=== PATIENT | female | born 1950 | race Caucasian/White ===

== ENCOUNTER → 2021-03-12 | Outpatient (CLI) | payer MEDICARE, OTHER ==
[~2021-03-12] MED LIST: ASCO500C17 PO; CALC-823 PO; CHOL500049 PO; LORA10TA76 PO
--- NOTE | 2021-03-12 14:08 | Diagnostic Imaging Report ---
INDICATION: Nephrolithiasis. FINDINGS: The bowel gas pattern is nonspecific. There are no abnormal abdominal calcifications. The osseous structures are unremarkable. IMPRESSION: Nonspecific bowel gas pattern. Dictated by: Dictated on workstation # [id number]
== END ==
LOC: RAD 13:13
PROVIDERS: ATTEND Urology
DX: Z87.442 Personal history of urinary calculi (principal)
CPT/HCPCS: 74018

== ENCOUNTER 2021-03-13 06:08 | Day surgery (SDC) | payer MEDICARE, OTHER ==
[2021-03-13] VITALS (8 sets, daily range): BP systolic 129–163; BP diastolic 68–83
--- NOTE | 2021-03-13 07:02 | Progress Note-Pre Operative ---
Pre-Operative Progress Note H&P Reviewed The H&P was reviewed, patient examined and no changes noted. Date Seen by Provider: Mar 13, 2021 Time Seen by Provider: 07:02 Date H&P Reviewed: Mar 13, 2021 Time H&P Reviewed: 07:02 Pre-Operative Diagnosis: RT PROXIMAL URETERAL STONE DANYEL CARRILLO MD Mar 13, 2021 07:02
--- NOTE | 2021-03-13 07:08 | Diagnostic Imaging Report ---
REASON FOR EXAM: ESWL COMPARISON: 03/12/2021. TECHNIQUE: frontal supine view of the abdomen FINDINGS: Calculus is seen along the expected course of the right ureter measuring 0.8 cm. This appears to have progressed slightly since the prior exam. IMPRESSION: Slight progression of the calculus along the expected course of the right ureter measuring 0.8 cm. Dictated by: Dictated on workstation # [id number]
[2021-03-13] MEDS ORDERED: WATER (STERILE) FOR INJECTION 10 ML ONE (07:11)
[2021-03-13] MEDS ORDERED: cefTRIAXone 1,000 MG VIAL ONE (07:11)
[2021-03-13] MEDS ORDERED: CALC-823 PO (07:14)
[2021-03-13] MEDS ORDERED: CHOL500049 PO (07:14)
[2021-03-13] MEDS ORDERED: ASCO500C17 PO (07:14)
[2021-03-13] MEDS ORDERED: LORA10TA76 PO (07:14)
--- NOTE | 2021-03-13 07:27 | Progress Note-Post Operative ---
Post-Operative Progess Note Surgeon (s)/Certified Peer Specialist (s) Surgeon DANYEL CARRILLO MD Certified Peer Specialist: NONE Pre-Operative Diagnosis RT PROXIMAL URETERAL STONE Post-Operative Diagnosis SAME Procedure & Operative Findings Date of Procedure 03/13/21 Procedure Performed/Findings CYSTOSCOPY, RT URETEROSCOPY, STONE MANIPULATION, AND INSERTION OF STENT Anesthesia Type GENERAL Estimated Blood Loss Estimated blood loss (mL): NONE Specimens/Packing Specimens Removed NONE Packing: NONE DANYEL CARRILLO MD Mar 13, 2021 07:27
--- NOTE | 2021-03-13 07:28 | Discharge Inst-Urology ---
Discharge Inst-Urology Reconcile Patient Problems Problems Reviewed?: Yes Final Diagnosis RT PROXIMAL URETERAL STONE Patient Instructions/Follow Up Plan/Assessment/Instructions Please make appointment to been seen in office Monday 03/26, KUB prior to it KUB on way home Increase oral fluids for 48 hours and then as needed. Diet and Activity as tolerated. If questions or concerns contact your physician Or seek help at emergency department. DANYEL CARRILLO MD Mar 13, 2021 07:28
[2021-03-13] MEDS ORDERED: SCOPOLAMINE 1.5 MG (TRANSDERM-SCOP) PATCH TOP ONE (07:30)
[2021-03-13] MEDS ORDERED: cefTRIAXone 1,000 MG in WATER (STERILE) FOR INJECTION 10 ML IV ONE (07:30)
[2021-03-13] MEDS ORDERED: ONDANSETRON 4 MG/2 ML (SDV) Z0FRAN IV ONE (07:30)
[2021-03-13] MEDS ORDERED: FAMOTIDINE 20MG/2ML IV (PEPCID) IV ONE (07:30)
[2021-03-13] MEDS ORDERED: LIDOCAINE PF 2% 5 ML (XYLOCAINE) VIAL ONE (07:57)
[2021-03-13] MEDS ORDERED: proPOfol 200 MG/20 ML (DIPRIVAN) VIAL IV ONE (07:57)
[2021-03-13] MEDS ORDERED: ONDANSETRON 4 MG/2 ML (SDV) Z0FRAN ONE (07:57)
[2021-03-13] MEDS ORDERED: SEVOFLURANE (ULTANE) 15 ML INHAL SOLN ONE ×2 (07:57→08:46)
[2021-03-13] MEDS ORDERED: fentaNYL INJ 100 MCG/2 ML AMP ONE (07:58)
[2021-03-13] MEDS ORDERED: MIDAZOLAM 2 MG/2 ML (VERSED) VIAL ONE (07:58)
[2021-03-13] MEDS ORDERED: LACTATED RINGERS 1,000 ML IV PRN (08:00)
[2021-03-13] MEDS ORDERED: KETOROLAC 30 MG/ML VIAL ONE (08:19)
[2021-03-13] MEDS ORDERED: FUROSEMIDE 40 MG/4 ML INJ (LASIX) ONE (08:19)
[2021-03-13] MEDS ORDERED: ROCURONIUM 10 MG/ML 5 ML SYRINGE IV ONE (08:21)
[2021-03-13] MEDS ORDERED: NEOSTIGMINE 3 MG/3 ML VIAL ONE (08:50)
[2021-03-13] MEDS ORDERED: GLYCOPYRROLATE 0.2 MG/ML (ROBINUL) 2 ML VIAL ONE (08:50)
[2021-03-13] MEDS ORDERED: ONDANSETRON 4 MG/2 ML (SDV) Z0FRAN IVP PRN (09:00)
[2021-03-13] MEDS ORDERED: MEPERIDINE (DEMEROL) INJ 50 MG/ML IVP ONE (09:00)
[2021-03-13] MEDS ORDERED: morphine INJ 10 MG/ML 1ML (SYR OR VIAL) IVP ONE (09:00)
--- NOTE | 2021-03-13 10:09 | Anesthesia-General Post-Op ---
General Patient Condition Mental Status/LOC: Same as Preop Cardiovascular: Satisfactory Nausea/Vomiting: Absent Respiratory: Satisfactory Pain: Controlled Complications: Absent Post Op Complications Complications None Follow Up Care/Instructions Patient Instructions None needed. Anesthesia/Patient Condition Patient Condition Patient is doing well, no complaints, stable vital signs, no apparent adverse anesthesia problems. No complications reported per nursing. DAVID HORN CRNA Mar 13, 2021 10:09
--- NOTE | 2021-03-13 10:34 | Diagnostic Imaging Report ---
INDICATION: Nephrolithiasis. Comparison is made with prior examination from 03/13/2021. FINDINGS: There has been interval placement of a right nephroureteral stent which appears to be in satisfactory position. There is a crescent-shaped calcification overlying the right renal hilus. The previously described calculus along the course of the right ureter is not well-visualized IMPRESSION: Interval placement of a right nephroureteral stent which appears to be in satisfactory position. Dictated by: Dictated on workstation # [id number]
--- NOTE | 2021-03-13 14:09 | OPERATIVE REPORT ---
DATE OF SERVICE: 03/13/2021 PREOPERATIVE DIAGNOSIS: Right proximal ureteral stone. POSTOPERATIVE DIAGNOSIS: Right proximal ureteral stone. OPERATION PERFORMED: Cystoscopy, right ureteroscopy, right proximal ureteral stone manipulation and insertion of stent. SURGEON: Scout Carrillo MD ANESTHESIA: General. COMPLICATIONS: None. DESCRIPTION OF PROCEDURE: Under satisfactory general anesthesia, the patient in lithotomy position, genitalia were prepped and draped in the usual sterile fashion. Cystoscope was performed and was negative except for sluggish right ureteral efflux. Using the foroblique lens, I dilated the right ureteral orifice intramural portion to accommodate a 6.9 Iranian semi-rigid ureteroscope, went up to the proximal ureter about 1 cm distal to the stone guided fluoroscopically. I was unable to manipulate may be a spasm or peristalsis of the ureter to come to the stone. I discontinued further attempt, removed the ureteroscope, reinserted the cystoscope and passed a 6-Iranian 26 cm double-J stent, bypassed the stone, went all the way up to the kidney, removed the guidewire, the stent was seen draining nicely proximally fluoroscopically and distally endoscopically. Bladder was evacuated and the cystoscope was removed. The patient tolerated the procedure and anesthesia well and was sent to recovery room in stable condition. PLAN: Let her see Dr. 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 I will see her back on Monday 03/26. We will get a green light from him. We will bring her back and do an ESWL. Otherwise, I told her that she could have a flexible ureteroscopy at [facility] if she wishes to do so. This was also explained to her boyfriend. Job ID: [id number] DocumentID: [id number] Dictated Date: 03/13/2021 08:58:52 Histopathologist Date: 03/13/2021 14:07:32 Dictated By: SCOUT CARRILLO MD
== END 2021-03-13 10:30 ==
LOC: SDC 06:08
PROVIDERS: ATTEND Urology
DX: N20.1 Calculus of ureter (principal); K21.9 Gastro-esophageal reflux disease without esophagitis; J30.9 Allergic rhinitis, unspecified; Z80.0 Family history of malignant neoplasm of digestive organs
CPT/HCPCS: 52332; 52352; 74018; 76000; 87081; C2625

== ENCOUNTER → 2021-03-26 | Outpatient (CLI) | payer MEDICARE, OTHER ==
[~2021-03-26] MED LIST changes: +KETO10TA PO; +NITR-65 PO; +PHEN-640 PO; +TMSL.4C PO
--- NOTE | 2021-03-26 15:51 | Diagnostic Imaging Report ---
INDICATION: Right ureterolithiasis KUB 220. There is right double-J ureteral stent. Curvilinear calcification projecting within the pelvis. There is a questionable calculus in the ureter at the level of the L4 transverse process. IMPRESSION: Right nephrolithiasis. Questionable right ureterolithiasis 4 mm in diameter at the level of the L4 transverse process Dictated by: Dictated on workstation # [id number]
== END ==
LOC: RAD 14:00
PROVIDERS: ATTEND Urology
DX: N20.2 Calculus of kidney with calculus of ureter (principal)
CPT/HCPCS: 74018

== ENCOUNTER 2021-03-27 06:44 | Day surgery (SDC) | payer MEDICARE, OTHER ==
[~2021-03-27] VITALS: Ht 160 cm; Wt 55.5 kg
[2021-03-27] VITALS (9 sets, daily range): BP systolic 128–162; BP diastolic 81–95
[~2021-03-27 06:44] MED LIST changes: -KETO10TA PO; -NITR-65 PO; -PHEN-640 PO; -TMSL.4C PO
[2021-03-27] MEDS ORDERED: cefTRIAXone 1,000 MG in WATER (STERILE) FOR INJECTION 10 ML IV ONE (08:15)
--- NOTE | 2021-03-27 08:24 | Progress Note-Pre Operative ---
Pre-Operative Progress Note H&P Reviewed The H&P was reviewed, patient examined and no changes noted. Date Seen by Provider: Mar 27, 2021 Time Seen by Provider: 08:24 Date H&P Reviewed: Mar 27, 2021 Time H&P Reviewed: 08:24 Pre-Operative Diagnosis: RT PROXIMAL URETERAL STONE DANYEL CARRILLO MD Mar 27, 2021 08:24
--- NOTE | 2021-03-27 08:27 | Diagnostic Imaging Report ---
INDICATION: Status post lithotripsy, renal/ureteral calculi COMPARISON: 03/26/2021 TECHNIQUE: Single radiograph of the abdomen dated 03/27/2021 FINDINGS: Right ureteral stent is again identified, appearing stable from the prior examination. 6 mm calcification abutting the proximal right ureteral stent lying between the right L4 and L5 transverse processes is again identified, appearing similar to the prior examination given differences in technique. Additional curvilinear calcification overlying the superior pole of the right renal shadow is unchanged from the prior examinations. Nonobstructive bowel gas pattern. No free air. Osseous structures appear stable. IMPRESSION: Persistent 6 mm calcification abutting the proximal right ureteral stent which may relate to a right-sided ureterolith. Additional stable findings as above. Dictated by: Dictated on workstation # [id number]
[2021-03-27] MEDS: LACTATED RINGERS 1,000 ML IV PRN ×2 (08:53→09:45)
[2021-03-27] MEDS ORDERED: FAMOTIDINE 20MG/2ML IV (PEPCID) ONE (09:06)
[2021-03-27] MEDS ORDERED: ONDANSETRON 4 MG/2 ML (SDV) Z0FRAN ONE ×2 (09:07→09:13)
[2021-03-27] MEDS ORDERED: SEVOFLURANE (ULTANE) 15 ML INHAL SOLN ONE (09:13)
[2021-03-27] MEDS ORDERED: fentaNYL INJ 100 MCG/2 ML AMP ONE (09:13)
[2021-03-27] MEDS ORDERED: MIDAZOLAM 2 MG/2 ML (VERSED) VIAL ONE (09:13)
[2021-03-27] MEDS ORDERED: LIDOCAINE PF 2% 5 ML (XYLOCAINE) VIAL ONE (09:13)
[2021-03-27] MEDS ORDERED: proPOfol 200 MG/20 ML (DIPRIVAN) VIAL IV ONE (09:13)
[2021-03-27] MEDS ORDERED: ONDANSETRON 4 MG/2 ML (SDV) Z0FRAN IV ONE (09:15)
[2021-03-27] MEDS ORDERED: FAMOTIDINE 20MG/2ML IV (PEPCID) IV ONE (09:15)
--- NOTE | 2021-03-27 09:35 | Progress Note-Post Operative ---
Post-Operative Progess Note Surgeon (s)/Detention Deputy (s) Surgeon DANYEL CARRILLO MD Detention Deputy: NONE Pre-Operative Diagnosis RT PROXIMAL URETERAL STONE Post-Operative Diagnosis SAME Procedure & Operative Findings Date of Procedure 03/27/21 Procedure Performed/Findings RT ESWL WITH CYSTO AND REMOVAL OF STENT Anesthesia Type GENERAL Estimated Blood Loss Estimated blood loss (mL): NONE Specimens/Packing Specimens Removed NONE Packing: NONE DANYEL CARRILLO MD Mar 27, 2021 09:35
--- NOTE | 2021-03-27 09:39 | Discharge Inst-Urology ---
Discharge Inst-Urology Reconcile Patient Problems Problems Reviewed?: Yes Final Diagnosis RT PROXIMAL URETERAL STONE Patient Instructions/Follow Up Plan/Assessment/Instructions Please make appointment to been seen in office NEXT week. KUB prior to it KUB on way home Post ESWL instructions Increase oral fluids for 48 hours and then as needed. Diet and Activity as tolerated. If questions or concerns contact your physician Or seek help at emergency department. DANYEL CARRILLO MD Mar 27, 2021 09:39
[2021-03-27] MEDS ORDERED: GLYCOPYRROLATE 0.2 MG/ML (ROBINUL) 2 ML VIAL ONE (09:55)
[2021-03-27] MEDS ORDERED: KETOROLAC 30 MG/ML VIAL ONE (09:55)
[2021-03-27] MEDS ORDERED: FUROSEMIDE 40 MG/4 ML INJ (LASIX) ONE (09:55)
[2021-03-27] MEDS ORDERED: ONDANSETRON 4 MG/2 ML (SDV) Z0FRAN IVP PRN (10:15)
[2021-03-27] MEDS ORDERED: HYDROmorphone 2 MG/ML VIAL (DILAUDID) IV ONE (10:15)
[2021-03-27] MEDS ORDERED: PHEN-640 PO ×2 (11:37)
[2021-03-27] MEDS ORDERED: KETO10TA PO ×2 (11:37)
[2021-03-27] MEDS ORDERED: TMSL.4C PO ×2 (11:37)
[2021-03-27] MEDS ORDERED: NITR-65 PO ×2 (11:37)
--- NOTE | 2021-03-27 11:42 | Anesthesia-General Post-Op ---
General Patient Condition Mental Status/LOC: Same as Preop Cardiovascular: Satisfactory Nausea/Vomiting: Absent Respiratory: Satisfactory Pain: Controlled Complications: Absent Post Op Complications Complications None Follow Up Care/Instructions Patient Instructions None needed. Anesthesia/Patient Condition Patient Condition Patient is doing well, no complaints, stable vital signs, no apparent adverse anesthesia problems. No complications reported per nursing. D/C home per [facility] Criteria: Yes LAUREN PICKENS CRNA Mar 27, 2021 11:42
--- NOTE | 2021-03-27 12:02 | Diagnostic Imaging Report ---
HISTORY: Postoperative, right lithotripsy. COMPARISON: Radiographs from the same day. TECHNIQUE: Frontal view of the abdomen. FINDINGS: The previously seen 6 mm calcification in the region of the proximal right ureter appears fragmented when compared to the prior exam, with the largest fragment measuring up to 5 mm. The right ureteral stent has been removed. There is a curvilinear calcification projecting over the superior pole of the right kidney which is unchanged. No calcifications are identified. No bowel distention is seen. There is no large collection of free air. IMPRESSION:. Fragmentation of the proximal right ureteral calculus, mildly decreased in size. Dictated by: Dictated on workstation # [id number]
--- NOTE | 2021-03-27 16:13 | OPERATIVE REPORT ---
DATE OF SERVICE: 03/27/2021 PREOPERATIVE DIAGNOSIS: Right proximal ureteral stone. POSTOPERATIVE DIAGNOSIS: Right proximal ureteral stone. OPERATION PERFORMED: Right ESWL with cystoscopy and removal of right ureteral stent. SURGEON: Scout Carrillo MD ANESTHESIA: General. COMPLICATIONS: None. DESCRIPTION OF PROCEDURE: Under satisfactory general anesthesia, the patient in supine position on the ESWL table, right proximal ureteral stone was localized. Shocks were delivered at kV of 6. A total of 3000 shocks completely fragmented the stone. Prior to the end of the procedure, we put the patient in the frog position, genitalia were prepped and draped in the usual sterile fashion. Flexible ureteroscope was introduced under vision. The distal end of the right ureteral stent was visualized. It was grasped with grasping forceps and removed completely. Again, the fluoroscopy showed excellent fragmentation of the stone. The patient received 40 mg of Lasix and 30 mg of Toradol IV at the end of the procedure. She tolerated the procedure and anesthesia well and was sent to recovery room in stable condition. Job ID: [id number] DocumentID: [id number] Dictated Date: 03/27/2021 09:54:40 Interactive Art Director Date: 03/27/2021 16:11:39 Dictated By: SCOUT CARRILLO MD
== END 2021-03-27 12:40 | disposition home or self-care (01) ==
LOC: SDC 06:44
PROVIDERS: ATTEND Urology
DX: N20.2 Calculus of kidney with calculus of ureter (principal); J30.2 Other seasonal allergic rhinitis; Z79.899 Other long term (current) drug therapy
CPT/HCPCS: 74018; 87081

== ENCOUNTER → 2021-04-02 | Outpatient (CLI) | payer MEDICARE, OTHER ==
[~2021-04-02] MED LIST changes: +KETO10TA PO; +NITR-65 PO; +PHEN-640 PO; +TMSL.4C PO
--- NOTE | 2021-04-02 15:46 | Diagnostic Imaging Report ---
INDICATION: Cough EXAM: PA and lateral chest FINDINGS: The heart size and pulmonary vascularity are normal. The lungs are clear. There are no effusions or pneumothoraces. IMPRESSION: Negative chest. Dictated by: Dictated on workstation # [id number]
== END ==
LOC: RAD 14:15
PROVIDERS: ATTEND Family Medicine
DX: R05.9 Cough, unspecified (principal)
CPT/HCPCS: 71046

== ENCOUNTER → 2021-04-02 | Outpatient (CLI) | payer MEDICARE, OTHER ==
--- NOTE | 2021-04-02 18:02 | Diagnostic Imaging Report ---
INDICATION: Follow-up post lithotripsy. Comparison with 03/27/2021. FINDINGS: The calcifications which were in the proximal mid right ureter previously have passed. No residual calcifications are seen overlying the kidneys or ureteral path. No calcifications are seen in the bladder. IMPRESSION: Fragments of right ureteral calculi have passed since the previous exam. Dictated by: Dictated on workstation # [id number]
== END ==
LOC: RAD 13:47
PROVIDERS: ATTEND Urology
DX: Z87.442 Personal history of urinary calculi (principal)
CPT/HCPCS: 74018